=== PATIENT | female | born 1960 | race Caucasian/White ===

== ENCOUNTER 2017-05-19 21:20 | Inpatient (IN) | payer BC ==
[~2017-05-19] VITALS: Ht 162.6 cm; Wt 104.8 kg
[~2017-05-19 21:20] MED LIST: FISH OIL 1,0001 EAC7 PO; ONE DAILY1 EAC3 PO
[2017-05-20 09:32] VITALS: BP 138/75
[2017-05-20 09:59] LABS: POINT-OF-CARE METER ID UU14174212
[2017-05-20 15:21] VITALS: BP 168/79
[2017-05-20 17:20] LABS: POINT-OF-CARE METER ID UU14162508; POINT-OF-CARE USER ID PUTDRM
[2017-05-20 19:21] VITALS: BP 134/62
[2017-05-20 23:41] VITALS: BP 122/62
[2017-05-20 23:49] LABS: POINT-OF-CARE METER ID UU14208750
[2017-05-21 03:43] VITALS: BP 133/61
[2017-05-21 05:38] LABS: POINT-OF-CARE METER ID UU14208750
[2017-05-21 07:58] VITALS: BP 151/77
[2017-05-21 08:08] LABS: HEMATOCRIT 42.5 % (36.0-46.0); MCH 28.2 PG (29.0-34.0); MEAN PLAT.VOLUME 10.3 uM^3 (9.5-12.4); PLATELET COUNT 253 K/uL (156-360); RBC DIS.WIDTH-CV 12.9 % (11.8-14.6); RBC DIS.WIDTH-SD 41.8 % (39-53); RED BLOOD COUNT 4.83 M/uL (3.80-5.20); WHITE BLOOD COUNT 12.2 K/uL (4.1-10.2)
[2017-05-21 08:29] LABS: ANION GAP 8 MEQ/L (2-14); CHLORIDE 104 MEQ/L (99-109); GFR ESTIMATE (CALCULATED) > 59 mL/min/; GLUCOSE 105 mg/dL (70-99); MAGNESIUM 1.7 mg/dl (1.3-2.7); POTASSIUM 3.9 MEQ/L (3.7-5.4); SAMPLE HEMOLYSIS CHECK 0; SAMPLE ICTERIC CHECK 0; SAMPLE LIPEMIA CHECK 0; SODIUM 141 MEQ/L (136-147); UREA NITROGEN (BUN) 7 mg/dL (9-23)
[2017-05-21] MEDS ORDERED: HYDROCODON-ACE1 EAC7 PO (10:22)
[2017-05-21 11:10] LABS: POINT-OF-CARE METER ID UU14208750
[2017-05-21 11:19] VITALS: BP 134/64
== END 2017-05-21 14:39 | disposition home or self-care (01) | DRG 621 ==
LOC: ENRESERV 21:20 → 2SOUTH 05-20 08:38 → 2EAST 05-20 08:38 → 2SOUTH 05-20 10:00 → ENRESERV 05-20 14:04 → 2EAST 05-20 15:14 → 2SOUTH 05-20 15:44 → 2EAST 05-21 14:39
PROVIDERS: Surgery
PROC: 0DB64Z3 Excision of Stomach, Percutaneous Endoscopic Approach, Vertical (ICD-10-PCS; principal; 2017-05-20)
DX: E66.01 Morbid (severe) obesity due to excess calories (principal); E78.5 Hyperlipidemia, unspecified; Z68.41 Body mass index [BMI] 40.0-44.9, adult
CPT/HCPCS: 36415; 80048; 82948; 83735; 84100; 85027; 85049; 94799; C9113; J0131; J0330; J0461; J0690; J1100; J1170; J1644; J1650; J1815; J1885; J2250; J2270; J2405; J2550; J2710; J2765; J3010; J3480; J7120; S0020